=== PATIENT | female | born 1960 | race Caucasian/White ===

== ENCOUNTER 2017-04-06 15:50 | Emergency (ER) | payer SELFPAY ==
[~2017-04-06] VITALS: Ht 152.4 cm; Wt 63.0 kg
[2017-04-06 15:59] VITALS: BP 126/84; PULSE 83; RESP 16; TEMP 98.6; O2SAT 95
[2017-04-06] MEDS ORDERED: LIDOCAINE HCL 1% 50 ML VIAL INFIL ONE (16:15)
--- NOTE | 2017-04-06 16:31 | PD ---
HPI Chief Complaint: Laceration/Skin Injury Time Seen by Provider: 16:05 Travel History International Travel<30 days: No Contact w/Intl Traveler<30days: No Traveled to known affect area: No History of Present Illness HPI 56-year-old female presents to the emergency department after sustaining a small laceration to her right thumb while grading carrots with a cheese grater. She reports only mild pain at the site but presented to the emergency department because she was unable to stop the bleeding at home. She reports normal sensation of the digit. She has full range of motion of the digit. The bleeding is well controlled in the emergency department. The wound does begin to bleed when the digit flexed. Tetanus status is unknown. [facility] Past Medical History Narrative Medical Pertinent past medical history positive for hepatitis C. Hepatitis: Yes (C, [place] w/ Belia ) Tetanus Vaccination: > 5 Years Influenza Vaccination: No ?: Not LMP: MENOPAUSAL Menopausal: Yes Past Surgical History Surgical History: No Previous Surgery Social History Alcohol Use: Yes (3-5 vodka drinks daily ) Tobacco Use: No Substance Use: No Allergies-Medications (Allergen,Severity, Reaction): Coded Allergies: Nonsteroidal Anti-Inflammatory Agts (Verified Allergy, Severe, Anaphylaxis , 04/06/17) Reported Meds & Prescriptions Reported Meds & Active Scripts Active No Active Prescriptions or Reported Medications Review of Systems Except as stated in HPI: all other systems reviewed are Neg Physical Exam Narrative GENERAL: [Alert, well-nourished, female. In no acute distress] SKIN: Small 0.25 cm flap laceration to right thumb dorsal aspect. 0.25 cm evulsion skin laceration right thumb dorsal aspect. Focused skin assessment warm /dry. HEAD: Atraumatic. Normocephalic. EYES: Pupils equal and round. No scleral icterus. No injection or drainage. ENT: No nasal bleeding or discharge. Mucous membranes pink and moist. NECK: Trachea midline. No JVD. CARDIOVASCULAR: Regular rate and rhythm. No murmur appreciated. RESPIRATORY: No accessory muscle use. Clear to auscultation. Breath sounds equal bilaterally. GASTROINTESTINAL: Abdomen soft, non-tender, nondistended. Hepatic and splenic margins not palpable. MUSCULOSKELETAL: Right thumb: 0.25 cm flap laceration right thumb. No tendon injury. Normal sensation of the digit. Brisk cap refill. No obvious deformities. No clubbing. No cyanosis. No edema. NEUROLOGICAL: Awake and alert. No obvious cranial nerve deficits. Motor grossly within normal limits. Normal speech. PSYCHIATRIC: Appropriate mood and affect; insight and judgment normal. Data Data Last Documented VS Vital Signs Date Time Temp Pulse Resp B/P Pulse Ox O2 Delivery O2 Flow Rate FiO2 04/06/17 15:59 98.6 83 16 126/84 95 Orders Lidocaine 1% Inj (50 Ml) (Xylocaine 1% I (04/06/17 16:15) [facility] Medical Decision Making Medical Screen Exam Complete: Yes Emergency Medical Condition: Yes Medical Record Reviewed: Yes Differential Diagnosis Laceration, tendon laceration, avulsion skin injury Narrative Course 56 over him on presents to the emergency department after sustaining a small laceration to the right thumb while grading carrots and she is greater. Patient became concerned that she was unable to stop the bleeding at home. During the course of her ER stay bleeding was well controlled but the wound did begin to bleed when the finger was flexed. The wound was cleansed and laceration repair performed. Patient tolerated procedure well. She was instructed to follow-up with her primary care provider for wound recheck in 2 days and suture removal in 10. Tetanus immunization was updated. Procedures Procedure Narrative LACERATION LOCATION: Right thumb LENGTH: [-0.25 cm] NUMBER OF STITCHES/MICAH: [1] REPAIR: The area of the laceration was prepped with Betadine and sterilely draped. The laceration was infiltrated with [-1% lidocaine]. The wound was copiously irrigated and explored without evidence of foreign body, tendon injury or neurovascular injury. The wound was closed using [4. 0 Prolene]. This was a [single] layer repair. A sterile dressing was applied. The patient was advised to keep the dressing clean and dry. Patient tolerated the procedure well. Diagnosis Primary Impression: Finger laceration Qualified Code: S61.219A - Finger laceration, initial encounter Referrals: Primary Care Physician Patient Instructions: General Instructions, Laceration (ED) Scripts No Active Prescriptions or Reported Meds Disposition: 01 DISCHARGE HOME Condition: Stable Carmen Bhatt April 06, 2017 16:31
[2017-04-06] MEDS ORDERED: TETANUS/DIPHTHERIA TOXOID ADULT 0.5 ML VIAL IM ONE (16:45)
== END 2017-04-06 17:10 | disposition home or self-care (01) ==
LOC: PHEFT 15:50
DX: S61.219A Laceration without foreign body of unspecified finger without damage to nail, initial encounter (principal); Z23 Encounter for immunization; F10.10 Alcohol abuse, uncomplicated; B19.20 Unspecified viral hepatitis C without hepatic coma; W27.4XXA Contact with kitchen utensil, initial encounter; Y93.89 Activity, other specified; Y92.9 Unspecified place or not applicable; Y99.9 Unspecified external cause status
CPT/HCPCS: 12001; 90471; 90714